=== PATIENT | female | born 1945 | race Caucasian/White ===

== ENCOUNTER 2025-04-12 22:36 | Emergency (ER) | payer OTHER ==
[~2025-04-12] VITALS: Ht 165.1 cm; Wt 75.9 kg
[~2025-04-12 22:36] MED LIST: CITA-106 PO; FERR324T10 PO; FEXO-402 PO; GABA-529 PO; HYDR-2132 PO; HYDR-4068 PO; HYDR25TA PO; LEVO100T12 PO; LIDOCAINE PATCH; LISI20TA24 PO; POTA10CA95 PO; ROSU20TA98 PO; VERA240T95 PO; WARF-57 PO
--- NOTE | 2025-04-12 22:45 | EKG ---
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
[2025-04-12 22:59] LABS: IMMATURE GRANULOCYTE ABSOLUTE 0.01 K/uL (0-1); NUCLEATED RED BLOOD CELLS 0.0 % (0.0-0.19); PLATELET COUNT (AUTO) 248 K/uL (130-400); RED BLOOD CELL COUNT(AUTO) 4.34 MIL/uL (4.00-5.50); RED CELL DISTRIBUTION WIDTH 11.1 % (11.0-15.5); WHITE BLOOD COUNT (AUTO) 5.9 K/uL (4.8-10.8)
[2025-04-12 23:08] LABS: CREATININE 1.0 mg/dL (0.5-1.0); GLOMERULAR FILTR. RATE CALC 57.0 mL/min (>90); GLUCOSE,RANDOM 115.0 mg/dL (70-105); SODIUM SERUM 136.0 mmol/L (136-145); UREA NITROGEN, BLOOD 21.0 mg/dL (7-18)
[2025-04-12 23:13] LABS: CREATINE KINASE, TOTAL 93.0 U/L (21-232)
--- NOTE | 2025-04-13 | HMCIMG ---
EXAM: CR Chest, 1 view CLINICAL HISTORY: Chest pain. COMPARISON: 11/11/2009. FINDINGS: The lungs show no infiltrates or other acute findings. No pleural effusion or pneumothorax. The cardiomediastinal silhouette is within normal limits. Mild atherosclerotic aorta. No acute osseous abnormality. Metal implant in the cervical spine. IMPRESSION: No acute cardiopulmonary process is evident. Compared to the prior study, there is no significant interval change. /[place]
[2025-04-13 00:40] VITALS: BP 155/75; PULSE 75; RESP 18; TEMP 98.5; O2SAT 97
--- NOTE | 2025-04-13 00:41 | ERN ---
General Chief Complaint: Chest Pain Stated Complaint: CHEST PAIN, VOMITING Time Seen by MD: 22:57 Time Seen by Midlevel: 22:57 Source: patient History of Present Illness Initial Comments The patient is an 79-year-old female presenting to the emergency department after she had one dizzy spell with associated chest pressure 3 hours prior to arrival. On arrival she has no complaints but wanted further evaluation. Allergies: Coded Allergies: atorvastatin (Verified Allergy, Unknown, 07/30/16) propoxyphene (Verified Adverse Reaction, Unknown, 07/30/16) tramadol (Verified Adverse Reaction, Unknown, 07/30/16) Home Meds Active Scripts Hydrocodone Bit/Acetaminophen ([place] 5/325Mg) 1 Tab Tablet, 1-2 TAB PO Q6H PRN for pain, #90 TAB Prov:LUPE BLANCO MD 08/05/16 Ferrous Fumarate (Hemocyte) 324 Mg Tablet, 324 MG PO DAILY PRN for IF HEMOGLOBIN LESS THAN 9, #30 TAB Prov:LUPE BLANCO MD 08/05/16 Reported Medications Warfarin Sodium (Warfarin Sodium) 5 Mg Tablet, 5 MG PO AD, TAB 07/30/16 Verapamil HCl (Verapamil ER) 240 Mg Tablet.er, 240 MG PO DAILY, TAB 07/30/16 Rosuvastatin Calcium (Rosuvastatin Calcium) 20 Mg Tablet, 20 MG PO DAILY, TAB 07/30/16 Potassium Chloride (Potassium Chloride) 10 Meq Capsule.er, 10 MEQ PO DAILY, CAP 07/30/16 Lisinopril (Lisinopril) 20 Mg Tablet, 20 MG PO BID, TAB 07/30/16 [Lidocaine Patch] No Conflict Check, 5 % .AD DAILY 07/30/16 Levothyroxine Sodium (Levothyroxine Sodium) 100 Mcg Tablet, 100 MCG PO DAILY, TAB 07/30/16 Hydrocodone/Acetaminophen (Hydrocodon-Acetaminophn 10-325) 1 Each Tablet, 1 EACH PO Q6HRS PRN for PRN, TAB FOR PAIN 07/30/16 Hydrochlorothiazide (Hydrochlorothiazide) 25 Mg Tablet, 25 MG PO DAILY, TAB 07/30/16 Gabapentin (Gabapentin) 100 Mg Capsule, 2 TAB PO HS, CAP 07/30/16 Fexofenadine HCl (Fexofenadine HCl) 180 Mg Tablet, 180 MG PO DAILY, TAB 07/30/16 Citalopram Hydrobromide (Celexa 20Mg Tab) 20 Mg Tablet, 20 MG PO HS, TAB 07/30/16 Past Medical History Past Medical History: Hypertension Past Surgical History: Hysterectomy, Other, Surgical History Other: RT MASTECTOMY, NECK, LEFT KNEE ROS Dictation CONSTITUTIONAL: Negative except for HPI HEAD/FACE: Negative except for HPI EENT: Negative except for HPI RESPIRATORY: Negative except for HPI GASTROINTESTINAL/ABDOMINAL: Negative except for HPI GENITOURINARY: Negative except for HPI MUSCULOSKELETAL: Negative except for HPI INTEGUMENTARY: Negative except for HPI NEUROLOGICAL/PSYCH: Negative except for HPI HEMATOLOGIC/LYMPHATIC: Negative except for HPI All Systems Negative, Except as noted above. 13 point review of systems assessed and all negative except for above. Physical Exam Physical Exam Dictation Vital Signs reviewed General Appearance: Alert, oriented x 3, no acute distress, well developed, nourished. Head and Face: non-traumatic. Eyes: PERRL, pink conjunctivas, eyelid no trauma, anterior chamber with arcus senilis. Ears: Pinnas intact and no signs of trauma or erythema ear canals clear and no discharge TM no erythema Nose: No discharge, no bleeding. Oropharynx: Mouth normal, tongue pink, pharynx clear,no erythema, tonsils no exudates, no abscesses noted, mucous membrane moist Neck: Supple, non-tender, no thyromegaly, no masses, no JVD, no bruits Breast:Deferred Chest:No tenderness, no crepitus, no paradoxical movement, no retractions Lungs:Clear, well-ventilated, symmetric, no rales, no wheezing, no rhonchi, no stridor, good breath sounds bilaterally Heart: Regular rate, regular rhythm, no murmur, no gallops Vascular: no peripheral edema, Abdomen: Soft, positive bowel sounds, nondistended, no guarding, nontender, no rebound, no masses no hepatomegaly, no splenomegaly, no Montalvo's sign, no hernias. Rectal: Deferred Genital: Deferred Neurological: Normal speech, motor function intact, sensory function intact Musculoskeletal: Neck nontender, full range of motion, back nontender, full range of motion, Extremities: nontender, full range of motion Skin: Color pink, dry, no turgor, no rash, no lacerations, no abrasions, no contusions. Lymphatic: Deferred Results Laboratory and Microbiology Lab and Micro Result Laboratory Tests Test 04/12/25 22:52 White Blood Count 5.9 K/uL (4.8-10.8) Red Blood Count 4.34 MIL/uL (4.00-5.50) Hemoglobin 14.4 g/dL (12.0-16.0) Hematocrit 42.8 % (36-48) Mean Corpuscular Volume 98.6 fL (79-99) Mean Corpuscular Hemoglobin 33.2 pg (27.0-33.0) H Mean Corpuscular Hemoglobin Concent 33.6 g/dL (32.0-36.0) Red Cell Distribution Width 11.1 % (11.0-15.5) Platelet Count 248 K/uL (130-400) Mean Platelet Volume 9.3 fL (7.5-10.5) Immature Granulocyte % (Auto) 0.2 % (0-1) Neutrophils (%) (Auto) 54.8 % (40.0-77.0) Lymphocytes (%) (Auto) 30.8 % (21.0-51.0) Monocytes (%) (Auto) 8.9 % (3.0-13.0) Eosinophils (%) (Auto) 4.5 % (0.0-8.0) Basophils (%) (Auto) 0.8 % (0.0-5.0) Neutrophils # (Auto) 3.3 K/uL (1.8-7.7) Lymphocytes # (Auto) 1.8 K/uL (1.0-4.8) Monocytes # (Auto) 0.5 K/uL (0.1-1.0) Eosinophils # (Auto) 0.27 K/uL (0.00-0.70) Basophils # (Auto) 0.05 K/uL (0.00-0.20) Absolute Immature Granulocyte (auto 0.01 K/uL (0-1) Nucleated Red Blood Cells 0.0 % (0.0-0.19) Sodium Level 136 mmol/L (136-145) Potassium Level 4.3 mmol/L (3.5-5.1) Chloride Level 100 mmol/L (101-111) L Carbon Dioxide Level 27 mmol/L (21-32) Blood Urea Nitrogen 21 mg/dL (7-18) H Creatinine 1.0 mg/dL (0.5-1.0) Glomerular Filtration Rate Calc 57 mL/min (>90) Random Glucose 115 mg/dL (70-105) H Total Calcium 8.8 mg/dL (8.5-10.1) Total Creatine Kinase 93 U/L (21-232) Troponin I High Sensitivity 7 ng/L (4-50) Labs Reviewed?: Yes MDM MDM: The patient is an 79-year-old female presenting to the emergency department after she had one dizzy spell with associated chest pressure 3 hours prior to arrival. On arrival she has no complaints but wanted further evaluation. On physical examination the patient is in no acute distress. Initial vital signs are stable. Patient is afebrile and nontoxic appearing. Cardiac workup was initiated. EKG shows no ST elevations or acute ischemic changes. Initial troponin is negative. CBC and chemistries are unremarkable. No evidence of anemia or electrolyte derangements. Chest x-ray shows no acute cardiopulmonary process. Given patient's age and symptoms my plan was to admit the patient but the patient states she would rather go home and follow up outpatient. Differential diagnosis: Acute coronary syndrome, cardiac arrhythmia, dehydration, electrolyte abnormality Rationale: Tests considered and ordered secondary to shared decision making include: Previous outside records reviewed: Old ER visits. Risk of complication and/or morbidity or mortality of patient management: None Medications-Per medication reconciliation Need for hospitalization: Patient does meet criteria for hospitalization. Need for emergency major/minor surgery: No There are no social concerns with this patient. Prescription drug management Prescriptions will include symptomatic care Patient's prior external medical records from other ER visits were reviewed by me as indicated. Prior testing and results from previous visits were reviewed. Prior tests were taken into account with medical decision making and resource utilization, independent historian/historians were used to obtain complete medical history. I independently interpreted the test that were performed, results were reviewed by me and considered findings on radiology if ordered. Medical management and examination interpretation discussions were had by me with other qualified healthcare professionals as indicated for the patient's care. ED Course Orders Procedure Category Date Status Time Vital Signs Per CPOE 04/12/25 Transmitted Routine 22:39 Chest 1vw RAD 04/12/25 Resulted 22:39 12 Lead Ekg Tracing- EKG 04/12/25 Complete Technical 22:39 Oxygen By Nc/Pulse Ox CPOE 04/12/25 Transmitted 22:39 Maintain Iv CPOE 04/12/25 Transmitted 22:39 Iv Insertion CPOE 04/12/25 Transmitted 22:39 Cardiac Monitoring CPOE 04/12/25 Transmitted 22:39 Pulse Oximetry With CPOE 04/12/25 Transmitted Vs And Prn 22:39 Cbc With Differential LAB 04/12/25 Complete 22:39 Activity: Br W/Brp CPOE 04/12/25 Transmitted With Assist 22:39 Creatine Kinase, Total LAB 04/12/25 Complete 22:39 Troponin I High LAB 04/12/25 Complete Sensitivity 22:39 Urinalysis Profile LAB 04/12/25 Logged 22:39 Basic Metabolic Panel LAB 04/12/25 Complete 22:39 Vital Signs Date Time Temp Pulse Resp B/P (MAP) Pulse Ox O2 Delivery O2 Flow Rate FiO2 04/12/25 23:32 72 18 159/80 97 Room Air* 0 21 04/12/25 22:39 97.0 68 16 183/79 97 Room Air HEART Score Response (Comments) Value History: Low suspicion (0) 0 EKG: Normal 0 Age: > 65yrs (+2) 2 Risk Factors: 1-2 risk factors (+1) 1 Initial Troponin: Normal limit (0) 0 Total 3 DX & DISP Disposition: Discharge Departure Impression: Primary Impression: Non-cardiac chest pain Condition: Stable Referrals: DIMITRIOS GALLEGOS (PCP) JOSE L LOMAS MD I have reviewed the case, and I agree with, Diagnosis and Plan I performed the substantive portion of the visit. I have reviewed and personally made and approve the management plan that is documented in the note by myself or the VICKIE. I acknowledge for responsibility for the patient's management plan. NATALIYA TREVINO PAC Apr 13, 2025 00:41
== END 2025-04-13 00:47 | disposition home or self-care (01) ==
LOC: EDH 22:36
DX: R07.89 Other chest pain (principal); R42 Dizziness and giddiness; I10 Essential (primary) hypertension; Z88.5 Allergy status to narcotic agent; Z88.8 Allergy status to other drugs, medicaments and biological substances; Z79.899 Other long term (current) drug therapy; Z79.890 Hormone replacement therapy; Z90.11 Acquired absence of right breast and nipple; Z90.710 Acquired absence of both cervix and uterus
CPT/HCPCS: 36415; 71045; 80048; 82550; 84484; 85025; 93005; 99285